=== PATIENT | female | born 1985 | race Hispanic/Latino ===

== ENCOUNTER 2022-01-25 12:41 | Emergency (ER) | payer OTHER | END 2022-01-25 14:00 | disposition home or self-care (01) | LOC: MADERS 12:41 | DX: S20.213A Contusion of bilateral front wall of thorax, initial encounter (principal); F17.290 Nicotine dependence, other tobacco product, uncomplicated; E66.9 Obesity, unspecified; V43.62XA Car passenger injured in collision with other type car in traffic accident, initial encounter; W22.12XA Striking against or struck by front passenger side automobile airbag, initial encounter; Z68.45 Body mass index [BMI] 70 or greater, adult | CPT/HCPCS: 71045 ==